=== PATIENT | female | born 1995 | race Caucasian/White ===

== ENCOUNTER 2019-02-16 11:44 | Emergency (ER) | payer MEDICAID ==
[~2019-02-16] VITALS: Ht 157.5 cm; Wt 67.2 kg
[~2019-02-16 11:44] MED LIST: AMOX1TAB9 PO; D-ME473S2 PO
[2019-02-16 11:48] VITALS: BP 132/79; PULSE 100; RESP 22; Ht 157.5 cm; Wt 67.2 kg
== END 2019-02-16 13:26 | disposition home or self-care (01) ==
LOC: FTE 11:44
DX: J06.9 Acute upper respiratory infection, unspecified (principal); H66.003 Acute suppurative otitis media without spontaneous rupture of ear drum, bilateral
CPT/HCPCS: 99283